=== PATIENT | male | born 1935 | race Caucasian/White ===

== ENCOUNTER → 2016-09-21 | Day surgery (SDC) | payer MEDICARE, BC ==
--- NOTE | 2016-09-14 20:50 | HP ---
ADMITTING HISTORY AND PHYSICAL: DATE OF ADMISSION: 09/21/16 - SDS AGE: 81 years, male. SURGEON: Rashid Wharton MD ADMITTING DIAGNOSES: 1. Gross hematuria. 2. Possible bladder lesion. PLANNED PROCEDURES: 1. Cystoscopy. 2. Excision biopsy of bladder lesion. 3. Possible bilateral retrogrades. ADMITTING HISTORY OF PRESENT ILLNESS: Endy Acuna is an 81-year-old gentleman who had been scheduled for excision biopsy of a bladder lesion on . Surgery was cancelled because soon after receiving propofol and fentanyl in the operating room, he was noted to be in atrial fibrillation with a rapid ventricular rate. So, the surgery was never started. He was admitted and was started on diltiazem and Xarelto and subsequently converted to sinus rhythm. He is now being brought in for the previously scheduled surgery for excision of the bladder lesion and possible bilateral retrogrades. PAST MEDICAL HISTORY: Significant for: 1. Hypertension. 2. Coronary artery disease. 3. Aortic aneurysm. 4. Atrial fibrillation. MEDICATIONS: 1. Atorvastatin 40 mg a day. 2. Cardizem 120 mg daily. 3. Carvedilol 6.25 mg daily. 4. Singulair 10 mg daily. 5. Mouna 180 mg daily. 6. Flomax 0.4 mg daily. 7. Xarelto, which is temporarily stopped. ALLERGIES: No known drug allergies. SMOKING HISTORY: He is a nonsmoker. PHYSICAL EXAMINATION GENERAL: Reveals a pleasant healthy-appearing elderly gentleman. VITAL SIGNS: Blood pressure is 130/80; pulse 52 per minute, regular; oxygen saturation 97% on room air. CARDIOVASCULAR EXAM: Regular rate and rhythm. S1, S2. LUNGS: Clear bilaterally. IMPRESSION AND PLAN: An 81-year-old gentleman with recurrent episodes of hematuria and urine cytology, which was positive and suspicious for squamous cell carcinoma, who is now being brought in for cystoscopy and excision of bladder lesion and possible bilateral retrogrades. CC: Dr. Zuñiga; Dr. Mahan; Rashid Wharton MD * [id number]/[facility] #: [id number] [facility]
[~2016-09-21] MED LIST: Acetaminophen TAB* 325 MG PO PRN; Buffered Lidocaine 1% SYR 3ML* 3 ML/SYR SYRINGE INTRADERM ONE; Buffered Lidocaine 1% SYR 3ML* 3 ML/SYR SYRINGE ONE; Dexamethasone IV* 4 MG/ML 1 ML (4 MG) ONE; DiMENhydriNATE IV* 50 MG/ML VIAL IV PUSH PRN; EPHEDrine (Pressors)* 50 MG/ML VIAL ONE; Famotidine IV* 10 MG/ML 2 ML (20 mg) IV ONE; Famotidine IV* 10 MG/ML 2 ML (20 mg) ONE; Gentamicin ADULT (*) 160 MG in NS 0.9% 100 ML* 100 ML IVPB ONE; HYDROmorphone INJ* 1 MG/ML CARPUJECT SYRINGE IV PRN; Iohexol 180 (CONTRAST) 10 ML SDV IV ONE; Lidocaine 2% MPF* 2 ML VIAL ONE; Midazolam* 1 MG/ML 5 ML VIAL (5 MG) ONE; Ondansetron INJ* 2 MG/ML VIAL ONE; Propofol* 10 MG/ML 20 ML BTL IV PUSH ONE; cefTRIAXone(*) 2 GM ADDV.VIAL IVPB ONE; fentaNYL* 50 MCG/ML 2 ML VIAL (100 MCG VIAL) ONE; oxyCODONE/Acetamin 5/325 MG* TAB PO PRN
[2016-09-21 15:15] VITALS: BP 125/70
--- NOTE | 2016-09-22 22:53 | OP ---
DATE OF OPERATION: 09/21/16 - SDS DATE OF : [birth year] - AGE: 81 years, male. SURGEON: Rashid Wharton MD. ANESTHESIOLOGIST: Dr. Carmona. ANESTHESIA: General. PRE-OP DIAGNOSES: 1. Urethral bleeding. 2. Positive urine cytology. 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 OPERATIVE PROCEDURE: Cystoscopy, excision biopsy of urethral tumor. COMPLICATIONS: None. BLOOD LOSS: Minimal. 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 POSTOPERATIVE CONDITION: Stable. INDICATIONS: Endy Acuna is an 81-year-old gentleman who has had recurrent episodes of urethral bleeding. 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 DESCRIPTION OF PROCEDURE: After induction of general anesthesia, the patient was placed in dorsal lithotomy position. Sequential compression devices were in place and functioning. On initial cystoscopy, I did not see the above described lesion and the part of the urethra that I visualized appeared normal with just some congestive changes noted in the bulbar urethra. The prostate is moderately large. The bladder is trabeculated with multiple small diverticula noted. In the bladder, I saw a small papillary lesion, which was floating within the bladder contents and it looked like it had been detached from some portion possibly of the urethra. Because of this finding, I carefully examined the entire distal urethra and in the distal most part of the urethra just proximal to the meatus, I saw a fairly sizable 3-4 cm appearing, papillary superficial appearing lesion. The cystoscopic appearance was consistent with a urothelial superficial malignancy and using the biopsy forceps, I attempted to completely excise this. Next, the Bugbee electrocautery was introduced and the area was carefully fulgurated. At the end of the procedure, I could not visualize any remaining lesion in this area and hemostasis appeared satisfactory. A 24-Czech Faria was introduced and connected to a drainage bag without difficulty. The patient tolerated the procedure satisfactorily and was transferred back to the recovery area in stable condition. CC: Mj Mahan MD; Rashid Wharton MD* [id number]/[facility] #: [id number] [facility]
== END | disposition home or self-care (01) ==
LOC: OR 09:13
PROVIDERS: ATTEND Urology
DX: C68.0 Malignant neoplasm of urethra (principal); R31.0 Gross hematuria; I10 Essential (primary) hypertension; I25.10 Atherosclerotic heart disease of native coronary artery without angina pectoris; I48.91 Unspecified atrial fibrillation; Z79.01 Long term (current) use of anticoagulants; I71.9 Aortic aneurysm of unspecified site, without rupture
CPT/HCPCS: 88305; J0696; J1100; J1580; J2250; J2405; J2704; J3010

== ENCOUNTER 2018-01-17 12:26 | Observation (INO) | payer MEDICARE, BC ==
[2018-01-17] MEDS ORDERED: NS 0.9% 1000 ML* 1,000 ML IV SCH (13:15)
[2018-01-17 13:18] LABS: ABS Basophils 0.1 10^3/ul (0-0.2); ABS Eosinophils 0.2 10^3/ul (0-0.6); ABS Monocytes 0.3 10^3/ul (0-0.8); ABS Nucleated RBC 0 10^3/ul; Eosinophil % 5.1 % (0-6); Hematocrit 30 % (42-52); Hemoglobin 10.2 g/dl (14.0-18.0); Lymphocyte % 21.8 % (25-47); Mean Corpuscular HGB Conc 34 g/dl (31-36); Mean Corpuscular Hemoglobin 30 pg (27-31); Mean Corpuscular Volume 88 fL (80-94); Mean Platelet Volume 7.2 um3 (7.4-10.4); Nucleated Red Blood Cells % 0.1; Platelet Count 204 10^3/ul (150-450); Red Cell Distribution Width 16 % (10.5-15); White Blood Count 4.6 10^3/ul (3.5-10.8)
[2018-01-17] MEDS ORDERED: Aspirin 81 mg CHEW TAB* 81 MG TAB.CHEW PO ONE (13:23)
--- NOTE | 2018-01-17 13:27 | RAD ---
INDICATION: Chest pain. COMPARISON: Comparison is made with a prior study from February 27, 2011. TECHNIQUE: A portable view of the chest was obtained. FINDINGS: Cardiac and mediastinal contours appear to be within normal limits. The lungs are clear. No pleural effusion is seen. IMPRESSION: NO EVIDENCE FOR ACUTE DISEASE.
[2018-01-17 13:29] LABS: INR 2.15 (0.77-1.02)
[2018-01-17 15:07] LABS: Urine Appearance Clear; Urine Blood 1+ (Negative); Urine Color Yellow; Urine Ketones Negative (Negative); Urine Protein Negative (Negative); Urine Urobilinogen Negative (Negative)
[2018-01-17] MEDS ORDERED: Gabapentin CAP(*) 100 MG PO SCH (17:00)
--- NOTE | 2018-01-17 17:54 | ED ---
Andrei Vincent Jennifer, scribed for Bimal Pichardo MD on 01/17/18 at 1347 . HPI Chest Pain - HPI Summary HPI Summary: The patient is an 82 y/o M who presents with chest tightness that began at 11: 00 today. The patient rates it an 8/10 pain located mid-sternum. The patient denies the pain radiates anywhere. He additionally complains of shortness of breath, dizziness, and his states he was pale. The patient states the pain is now barely there in the ED. - History of Current Complaint Chief Complaint: EDChestPainROMI Time Seen by Provider: 01/17/18 13:00 Hx Obtained From: Patient Onset/Duration: Started Hours Ago - 3 hours ago, Resolved - pain is barely there in ED Timing: Constant Initial Severity: Mild Current Severity: Mild Pain Intensity: 2 Pain Scale Used: 0-10 Numeric Chest Pain Location: Mid Sternal Chest Pain Radiates: No Character: Tightness Aggravating Factor(s): Nothing Alleviating Factor(s): Nothing Associated Signs and Symptoms: Positive: Other: - shortness of breath, dizziness , pale - Additional Pertinent History Primary Care Physician: DENEEN - Allergy/Home Medications Allergies/Adverse Reactions: Allergies Allergy/AdvReac Type Severity Reaction Status Date / Time No Known Allergies Allergy Verified 09/21/16 09:40 Home Medications: Home Medications Aspirin EC TAB* [Ecotrin EC Low Dose 81 MG*] 81 mg PO DAILY 01/17/18 [History Confirmed 01/17/18] Fluticasone DISKUS 250 MCG(NF) [Flovent Diskus 250 MCG(NF)] 1 puff INH BID 01/17 [History Confirmed 01/17/18] PMH/Surg Hx/FS Hx/Imm Hx Endocrine/Hematology History: Denies: Hx Anticoagulant Therapy, Hx Blood Disorders, Hx Blood Transfusions, Hx Bone Marrow Disease, Hx Diabetes, Hx Systemic Lupus Erythematosus, Hx Sickle Cell Disease, Hx Thyroid Disease, Hx Anemia, Hx Unexplained Bleeding, Other Endocrine/Hematological Disorders Cardiovascular History: Reports: Hx Coronary Artery Disease - aortic aneurysm, Hx Hypercholesterolemia, Hx Hypertension - on meds well controlled, Hx Myocardial Infarction, Other Cardiovascular Problems/Disorders - CHOLESTEROL CONTROL WITH MEDS, new diagnosis of a-fib Denies: Hx Aneurysm, Hx Angina, Hx Angioplasty, Hx Auto Implanted Cardiovert Defib, Hx Cardiac Arrest, Hx Cardiomegaly, Hx Congenital Heart Disease, Hx Congestive Heart Failure, Hx Deep Vein Thrombosis, Hx Hypotension, Hx Pacemaker/ ICD, Hx Peripheral Vascular Disease, Hx Rheumatic Fever, Hx Syncope, Hx Valvular Heart Disease Respiratory History: Reports: Hx Asthma - PRN INHALER History: Reports: Other Problems/Disorders - CURRENTLY HEMATURIA, bladder diverticlae Denies: Hx Acute Renal Failure, Hx Benign Prostatic Hyperplasia, Hx Chronic Renal Failure, Hx Dialysis, Hx Kidney Infection, Hx Kidney Stones, Hx Renal Disease Musculoskeletal History: Reports: Hx Back Problems - couple days ago "back went out" ok now, also 6 mons ago Denies: Hx Arthritis, Hx Bursitis, Hx Congenital Bone Abnormalities, Hx Fibromyalgia, Hx Gout, Hx Orthopedic Injury, Hx Osteoporosis, Hx Scoliosis, Hx Tendonitis, Other Musculoskeletal History Sensory History: Reports: Hx Cataracts - removed, Hx Contacts or Glasses - to read, Hx Hearing Aid - bilat, Hx Hearing Problem Denies: Hx Eye Injury, Hx Eye Prosthesis, Hx Glaucoma, Hx Macular Degeneration, Hx Vision Problem, Hx Deafness, Other Sensory Impairments Opthamlomology History: Reports: Hx Cataracts - removed, Hx Contacts or Glasses - to read Denies: Hx Eye Injury, Hx Eye Prosthesis, Hx Glaucoma, Hx Macular Degeneration, Hx Vision Problem, Other Sensory Impairments - Surgical History Surgery Procedure, Year, and Place: 1984 KNEE ARTHROSCOPIC SURGERY, [facility] [place]. 2001 LEFT ROTATOR CUFF REPAIR, [facility] [place]. 2002 RIGHT ROTATOR CUFF REPAIR, [facility] [place]. 2013 ANGIOPLASTY WITH 1 CARDIAC STENT PLACEMENT, [facility] [place]. CATARACTS 2013 Hx Anesthesia Reactions: No - Immunization History Date of Tetanus Vaccine: up to date Date of Influenza Vaccine: 2016 Infectious Disease History: No Infectious Disease History: Denies: Hx Clostridium Difficile, Hx Hepatitis, Hx Human Immunodeficiency Virus (HIV), Hx Shingles, Hx Tuberculosis, Traveled Outside the in Last 30 Days - Family History Known Family History: Negative: Renal Disease - Social History Alcohol Use: Weekly Substance Use Type: Reports: None Smoking Status (MU): Never Smoked Tobacco Have You Smoked in the Last Year: No Review of Systems Positive: Other - Pale Positive: Chest Pain - tightness Positive: Shortness Of Breath Neurological: Other - Dizziness All Other Systems Reviewed And Are Negative: Yes Physical Exam - Summary Physical Exam Summary: General: well-appearing, no pain distress Skin: warm, color reflects adequate perfusion, dry Head: normal Eyes: EOMI, ISI ENT: normal Neck: supple, nontender Respiratory: CTA, breath sounds present Cardiovascular: RRR Abdomen: soft, nontender Bowel: present Musculoskeletal: normal, strength/ROM intact Neurological: sensory/motor intact, A&O x3 Psychological: affect/mood appropriate Triage Information Reviewed: Yes Vital Signs On Initial Exam: Initial Vitals Temp Pulse Resp BP Pulse Ox 98.0 F 59 18 116/61 98 01/17/18 12:26 01/17/18 12:26 01/17/18 12:26 01/17/18 12:26 01/17/18 12:26 Vital Signs Reviewed: Yes Diagnostics - Vital Signs Vital Signs Temp Pulse Resp BP Pulse Ox 01/17/18 12:26 98.0 F 59 18 116/61 98 - Laboratory Lab Results: Lab Results 01/17/18 01/17/18 01/17/18 Range/Units 13:04 13:04 13:04 WBC 4.6 (3.5-10.8) 10^3/ul RBC 3.40 L (4.0-5.4) 10^6/ul Hgb 10.2 L (14.0-18.0) g/dl Hct 30 L (42-52) % MCV 88 (80-94) fL MCH 30 (27-31) pg MCHC 34 (31-36) g/dl RDW 16 H (10.5-15) % Plt Count 204 (150-450) 10^3/ul MPV 7.2 L (7.4-10.4) um3 Neut % (Auto) 65.0 (38-83) % Lymph % (Auto) 21.8 L (25-47) % Burke % (Auto) 6.9 (0-7) % Eos % (Auto) 5.1 (0-6) % Baso % (Auto) 1.2 (0-2) % Absolute Neuts (auto) 3.0 (1.5-7.7) 10^3/ul Absolute Lymphs (auto) 1.0 (1.0-4.8) 10^3/ul Absolute Monos (auto) 0.3 (0-0.8) 10^3/ul Absolute Eos (auto) 0.2 (0-0.6) 10^3/ul Absolute Basos (auto) 0.1 (0-0.2) 10^3/ul Absolute Nucleated RBC 0 10^3/ul Nucleated RBC % 0.1 INR (Anticoag Therapy) 2.15 H (0.77-1.02) APTT 38.9 H (26.0-36.3) seconds D-Dimer, Quantitative < 200 (Less Than 230) ng/mL Lactic Acid 1.3 (0.5-2.0) mmol/L Result Diagrams: 01/17/18 13:04 01/17/18 13:04 Lab Statement: Any lab studies that have been ordered have been reviewed, and results considered in the medical decision making process. - Radiology CXR Xray Interpretation: No Acute Changes - NO EVIDENCE FOR ACUTE DISEASE. Dr. Pichardo has reviewed this report. Radiology Interpretation Completed By: Radiologist - EKG 1230 Cardiac Rate: Bradycardia EKG Rhythm: Sinus Bradycardia - [address] Segment: Normal Ectopy: None Chest Pain Course/Dx - Course Course Of Treatment: ADMIT HOSPITALIST - Diagnoses Provider Diagnoses: Chest pain - Provider Notifications Discussed Care Of Patient With: Miki Aquino Time Discussed With Above Provider: 15:33 Instructed by Provider To: Admit As Inpatient Discharge - Sign-Out/Discharge Documenting (check all that apply): Discharge/Admit/Transfer - Discharge Plan Condition: Stable Disposition: ADMITTED TO [facility] - Billing Disposition and Condition Condition: STABLE Disposition: H[facility] [place] The documentation as recorded by the Andrei moreira Jennifer accurately reflects the service I personally performed and the decisions made by , Bimal Pichardo MD.
[2018-01-17] MEDS ORDERED: Mometasone 220 MCG MDI INH SCH (18:00)
[2018-01-17] MEDS: Metoprolol Tartrate TAB* 25 MG PO SCH ×2 (19:17→22:42)
[2018-01-17] MEDS ORDERED: Atorvastatin* 40 MG TAB PO SCH (21:00)
--- NOTE | 2018-01-17 22:56 | HP ---
HISTORY AND PHYSICAL: DATE OF ADMISSION: ADMITTING PROVIDER: Miki Aquino MD PRIMARY CARE PHYSICIAN: Dr. Lien Live. OUTPATIENT CHILD CAREGIVER: Dr. Zuñiga. OUTPATIENT UROLOGIST: Dr. Wharton. CHIEF COMPLAINT: Chest tightness, shortness of breath, dizziness. 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 On the morning of admission around 11 to 11:30 a.m. was using his weed eater in his garden when he developed sudden 8/10 chest tightness and shortness of breath. This lasted about 5 minutes, but did not completely resolve. He ate lunch, went down into the basement, came back up at which point his said he looked "terrible" and he admitted that he felt poorly and he was still short of breath and dizzy feeling. They drove themselves to the emergency room. He had taken his aspirin 81 mg, he got 3 more in the emergency room. He had an EKG, which was not concerning for STEMI and he was referred to hospitalist service for ACS rule out. He attests that the chest tightness does not necessarily feel like his myocardial infarction, but he admits that he cannot recall how that actually felt. He does notice that he seems to be getting more winded on his walks. He usually walks about 2 miles a day and for the last 2 to 3 days he has been getting more short of breath and having to stop more frequently. He denies any edema. Denies chills , fevers, or vomiting. Pain currently in his chest is about 2/10. He is a relatively poor historian and cannot attest why he is on the Xarelto and denies history of atrial fibrillation, although it is well documented in the previous notes. PAST MEDICAL HISTORY: Hypertension; STEMI with RCA stent drug-eluting; hyperlipidemia; asthma; papillary urothelial mass, status post resection with no evidence of invasive tumor; paroxysmal atrial fibrillation, on Xarelto. MEDICATIONS: 1. Flomax 0.4 mg daily. 2. Xarelto 20 mg p.o. daily. 3. Singulair 10 mg p.o. q.a.m. 4. Flovent 1 puff inhaled b.i.d. 5. Mouna 100 mg p.o. q.a.m. 6. Diltiazem 120 mg p.o. daily. 7. Carvedilol 6.25 mg p.o. q.h.s. 8. Lipitor 40 mg p.o. at bedtime. 9. Aspirin 81 mg daily. ALLERGIES: No known drug allergies. FAMILY HISTORY: His father of a heart attack at age 76. His mother had headaches. SOCIAL HISTORY: The patient is a never smoker, drinks rarely. Lives with his , Margie Acuna, who is his healthcare proxy and surrogate decision maker. He desires to be a full code. REVIEW OF SYSTEMS: A complete 14-point review of systems negative except as per HPI. He denies any rashes, dysuria, increased frequency of urination, headaches, wheezing, cough, paroxysmal nocturnal dyspnea or orthopnea, or lower extremity edema. PHYSICAL EXAMINATION GENERAL APPEARANCE: No acute distress. Lying in the hospital bed. VITAL SIGNS: Temperature 98.0, pulse rate 59, respiratory rate 18, oxygen sat 98%, blood pressure 116/61. HEENT: Normocephalic, atraumatic. Pupils are equal, round, and reactive to light. Extraocular motions intact. Moist mucous membranes. NECK: No cervical lymphadenopathy. Neck is supple. RESPIRATORY: Clear to auscultation bilaterally with no wheezing, rales, or rhonchi. CARDIOVASCULAR: Regular rate and rhythm. No murmurs, rubs, or gallops. ABDOMEN: Soft, nontender, nondistended. EXTREMITIES: Warm, well perfused. 1+ pitting edema bilaterally. NEURO: Cranial nerves II through XII intact. Sensation and strength intact. SKIN: No lesions. No rashes. DIAGNOSTIC STUDIES/LAB DATA: White count is 4.6, hemoglobin 10.2, hematocrit 30, platelets 204. INR 2.15. Sodium 139, potassium 4.0, chloride 108, carbon dioxide 23, BUN 19, creatinine 0.9, lactic acid 1.3, glucose 129, magnesium 2.1. Total bili 0.4, AST 17, ALT 11, alk phos 62. Troponin 0.00. CRP less than 1. BNP 109. Albumin 3.6. TSH 3.52. Lipase 46. Urinalysis: 1+ blood, trace leukocyte esterase. Imaging: Chest x-ray demonstrated no acute disease. ASSESSMENT AND PLAN: Endy Acuna is an 82-year-old male with past medical history of non-ST elevation myocardial infarction with RCA stent, hypertension, asthma, hyperlipidemia, presenting with acute onset chest tightness, shortness of breath and dizziness. He is being admitted for acute coronary syndrome rule out. Trend troponins q.3 hours for another two until peak. He is status post aspirin 324 mg total. He has already taken his Lipitor 40 mg this morning and I will give him another 40 tonight and continue daily. I am going to hold his Coreg 6.25 and diltiazem and start him on metoprolol 25 mg q.6 hours p.r.n. His blood pressure currently is 116/61. We will continue on telemetry. His last A1c was several years ago at 4.7%. No reported history of diabetes. His last LDL was 62 in May 2017 and HDL was 36. For his paroxysmal atrial fibrillation, we will continue his Xarelto, hold his Coreg, dilt and add metoprolol. He is not aware that he has this condition. For his benign prostatic hypertrophy, continue his Flomax. For his asthma, continue his Flovent and Singulair. He will be n.p.o. for now. Consider exercise or nuclear stress test tomorrow given there is some edema, slightly elevated BNP and exertional dyspnea. I will get a transthoracic echocardiogram. Last was from August 2017, which showed ejection fraction 55% to 60% with some diastolic dysfunction. I am going to stop the fluid bolus that was started in the emergency room. I will repeat the lipid panel in the morning. Given the several years since A1c, I will check that as well. He is full code and medical surrogate is Margie Acuna. For DVT ppx , he is already on xarelto. [id number]/[facility] #: [id number] YANAN
[2018-01-18] MEDS: Metoprolol Tartrate TAB* 25 MG PO SCH ×2 (05:41→11:56)
[2018-01-18] MEDS ORDERED: Montelukast Sodium TAB* 10 MG PO SCH (09:00)
[2018-01-18] MEDS ORDERED: Rivaroxaban TAB(*) 20 MG TAB PO SCH (09:00)
[2018-01-18] MEDS ORDERED: Aspirin EC TAB* 81 MG TAB.EC PO SCH (09:00)
[2018-01-18] MEDS ORDERED: Cetirizine* 10 MG TAB PO SCH (09:00)
[2018-01-18] MEDS ORDERED: Tamsulosin CAP* 0.4 MG PO SCH (09:00)
[2018-01-18 11:38] VITALS: BP 126/57
--- NOTE | 2018-01-18 11:44 | RAD ---
Edited for charges. INDICATION: Chest pain, history of coronary artery disease. COMPARISON: Comparison is made with a prior myocardial perfusion study from March 01, 2011. Technique: A single day myocardial perfusion stress study was performed. Initially the resting study was performed. The patient was given an intravenous injection of 10.8 mCi of technetium 99m tetrofosmin and and the heart was imaged in multiple projections. The patient returned later in the day and under the direction of Dr. Doll, the patient was given intervenous injection of Lexiscan. Subsequently the patient was given intravenous injection of 25.9 mCi of technetium 99m tetrofosmin and the heart was imaged in multiple projections. The patient was unable to be positioned for attenuated correction images limiting the study. Images were reconstructed in the axial, sagittal and coronal planes and in a 3- D format. FINDINGS: There appears to be normal wall motion and myocardial thickening. The left ventricular ejection fraction was calculated to be 62%. Review of the images demonstrates mild decreased activity in the inferior wall which appears similar on the post pharmacologic stress and resting images suggestive of attenuation artifact or infarct. There is no evidence for ischemia. IMPRESSION: NO EVIDENCE FOR ISCHEMIA. THERE IS DECREASED ACTIVITY IN THE INFERIOR WALL SUGGESTIVE OF ATTENUATION ARTIFACT OR AN INFARCT. ASSESSMENT: Low risk. Based on imaging criteria from ACC/AHA 2002 Guideline Update for the Management of Patients With Chronic Stable Angina Table 23. Noninvasive Risk Stratification. MTDD
[2018-01-18] MEDS ORDERED: Regadenoson* 0.4 MG/5 ML SYRINGE ONE (11:47)
--- NOTE | 2018-01-18 16:47 | ECHO ---
Patient: LÓPEZ LOVE [facility] Rec#: [id number] : 1935 Date: 01/18/2018 Age: 82y Height: 170.2 cm / 67.0 in Weight: 90.7 kg / 199.9 lbs Sex: M BSA: 2 Room#: [id number] Type: Inpatient Referring: Miki Aquino Reading: Jayson Meade MD [employer]orer [employer] Dock: Melissa Wilkerson RN RDCS CC: RAUL DE LA TORRE CC: Valencia Zuñiga MD Transthoracic Echocardiogram Indication: Chest pain, ARMANDO BP: 103/43 HR: 52 Rhythm: Bradycardia Findings History: PAF, CAD with PCI to RCA, HTN, HLD, asthma, BPH Technical Comments: The study quality is fair. Completed at 1525. Left Ventricle: The left ventricular chamber size is normal. Global left ventricular wall motion and contractility are within normal limits. There is normal left ventricular systolic function. The estimated ejection fraction is 55-60%. Abnormal left ventricular diastolic filling is observed, consistent with impaired relaxation. Left Atrium: The left atrium is mildly dilated. Right Ventricle: The right ventricular chamber size and systolic function are within normal limits. Right Atrium: The right atrium is mildly dilated. Aortic Valve: The aortic valve is trileaflet. The aortic valve leaflets are mildly thickened. There is trace to mild aortic regurgitation. There is no evidence of aortic stenosis. Mitral Valve: The mitral valve leaflets are mildly thickened. There is mild to moderate mitral regurgitation. Tricuspid Valve: The tricuspid valve leaflets are normal. There is trace to mild tricuspid regurgitation. No pulmonary hypertension is noted. Pulmonic Valve: The pulmonic valve appears normal. There is trace to mild pulmonic regurgitation. There is no pulmonic stenosis. Pericardium: There is no significant pericardial effusion. A pericardial fat pad is visualized. Aorta: There is mild dilatation of the ascending aorta. There is no dilatation of the aortic arch. There is moderate dilatation of the aortic root. Pulmonary Artery: The main pulmonary artery is not well visualized. Venous: The inferior vena cava is not visualized. Conclusions There is normal left ventricular systolic function. The estimated ejection fraction is 55-60%. Global left ventricular wall motion and contractility are within normal limits. The left ventricular chamber size is normal. Abnormal left ventricular diastolic filling is observed, consistent with impaired relaxation. The left atrium is mildly dilated. The right atrium is mildly dilated. There is mild to moderate mitral regurgitation. There is moderate dilatation of the aortic root. There is mild dilatation of the ascending aorta. Since the prior transesophageal echocardiogram completed 08/18/16, findings appear similiar. Measurements Name Value Normal Range RAd ISD 4CH 5.4 cm (3.4 - 4.9) RA (A4C)W 4.5 cm (2.9 - 4.6) IVSd (2D) 1.1 cm (0.6 - 1) LVPWd (2D) 1.2 cm (0.6 - 1) LVIDd (2D) 4.8 cm (3.6 - 5.4) LVIDs (2D) 3.1 cm - LV FS (2D) 35 % (25 - 45) Aortic Annulus 2.2 cm (1.4 - 2.6) Ao root diameter (2D) 4.1 cm (2.1 - 3.5) Ascending Ao 3.6 cm (2.1 - 3.4) Aortic arch 2.6 cm (1.8 - 3.4) LA dimension (AP) 2D 3.7 cm (2.3 - 3.8) LAd ISD 4CH 5.6 cm (2.9 - 5.3) LA ISD 4CH W 4.3 cm (2.5 - 4.5) Name Value Normal Range LA ESV SP 4CH (A/L) 54 ml - LA ESV SP 2CH (A/L) 52 ml - LA ESV BP (A/L) 55 ml - LA ESV BP (A/L) index 27.4 ml/m2 - LA ESV SP 4CH (MOD) 52 ml - LA ESV SP 2CH (MOD) 49 ml - Name Value Normal Range MV E-wave Vmax 0.76 m/sec - MV deceleration time 190 msec - MV A-wave Vmax 0.81 m/sec - MV E:A ratio 0.95 ratio - LV septal e' Vmax 0.04 m/sec - LV lateral e' Vmax 0.1 m/sec - LV E:e' septal ratio 19 ratio - LV E:e' lateral ratio 7.6 ratio - Name Value Normal Range AV Vmax 1.6 m/sec - AV VTI 41.8 cm - AV peak gradient 10.4 mmHg - AV mean gradient 5.8 mmHg - LVOT Vmax 1.1 m/sec - LVOT VTI 24 cm - LVOT peak gradient 4.6 mmHg - LVOT mean gradient 2.2 mmHg - JOSTIN Vmax 0.69 m/sec - Name Value Normal Range TR Vmax 2.5 m/sec - TR peak gradient 25 mmHg - RAP 8 mmHg - RVSP 33 mmHg - Name Value Normal Range PV Vmax 0.59 m/sec -
--- NOTE | 2018-01-19 02:44 | DS ---
DISCHARGE SUMMARY: DATE OF ADMISSION: 01/17/18 DATE OF DISCHARGE: 01/18/18 ADMITTING AND ATTENDING PHYSICIAN: Miki Aquino MD PRIMARY CARE PHYSICIAN: Line Live MD OUTPATIENT SECURITY MESSENGER: Valencia Zuñiga MD OUTPATIENT UROLOGIST: Rashid Wharton MD CHIEF COMPLAINT: Chest tightness, shortness of breath, dizziness. PRINCIPAL DIAGNOSIS: Acute coronary syndrome rule out. 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 On the morning of admission , he was using his weed eater in the garden when he developed chest tightness and shortness of breath. It lasted 5 minutes, but did not completely resolve. Please see H&P for full details. His brought him to the emergency room where he continued to feel short of breath and dizzy. He got total of 324 mg of aspirin. He had an EKG, which demonstrated sinus bradycardia, T-wave inversions in lead III. No ST elevations or depressions. He was admitted for ACS rule out, had negative troponins x3 and the nuclear stress test on hospital day #2, which was a low risk study. There was a possible area of decreased activity in the inferior wall suggestive of attenuation artifact. No evidence of ischemia, ejection fraction of 62%. He had transthoracic echocardiogram, results of that are still pending. He did attest to some decreased exercise tolerance. He usually walks about 2 miles a day, over the last 2 to 3 days feeling more short of breath, having to stop more frequently. He was continued on his Xarelto for his history of paroxysmal atrial fibrillation. There were no other changes to his medication. He had LDL recheck at 53, HDL of 31, A1c is pending, although was low several years ago, 4.7 in 2012. He should follow up with Dr. Lien Live or her nurse practitioner within 5 days of discharge. DISCHARGE MEDICATIONS: Include: 1. Aspirin 81 mg daily. 2. Atorvastatin 40 mg p.o. q.h.s. 3. Mouna 100 mg p.o. q.a.m. 4. Flovent Diskus 1 puff inhaled b.i.d. 5. Singulair 10 mg p.o. q.a.m. 6. Xarelto 20 mg p.o. daily. 7. Tamsulosin 0.4 mg p.o. q.a.m. 8. Carvedilol 6.25 mg p.o. q.h.s. 9. Diltiazem 120 mg p.o. daily. DISCHARGE DIET: Heart-healthy. ACTIVITY LEVEL: No restrictions. FOLLOWUP: Please follow up with Dr. iLen Live within 5 days of discharge. Consideration to follow up with Dr. Zuñiga, his outpatient canal lock tender chief operator. His echocardiogram results should be followed up. (ADDENDUM: EF 55-60%, diastolic dysfunction, mild-moderate MVR, moderate aortic root dilatation.) TIME SPENT ON DISCHARGE: 35 minutes. [id number]/[facility] #: [id number] MTDD
== END 2018-01-18 14:50 | disposition home or self-care (01) ==
LOC: ED 12:26 → MEDTELE 15:38
PROVIDERS: ADMIT Internal Medicine; ATTEND Internal Medicine
DX: R07.89 Other chest pain (principal); I48.0 Paroxysmal atrial fibrillation; Z79.01 Long term (current) use of anticoagulants; R06.02 Shortness of breath; R42 Dizziness and giddiness; I25.10 Atherosclerotic heart disease of native coronary artery without angina pectoris; Z86.79 Personal history of other diseases of the circulatory system; I25.2 Old myocardial infarction; E78.5 Hyperlipidemia, unspecified; I10 Essential (primary) hypertension
CPT/HCPCS: 36415; 71045; 78452; 80053; 80061; 81003; 81015; 82550; 82553; 83036; 83605; 83690; 83735; 83880; 84443; 84484; 85025; 85379; 85610; 85730; 86140; 87086; 93005; 93017; 93306; 94640; 99282; A9270-GY; A9502; G0378; J2785

== ENCOUNTER 2018-08-30 07:30 | Observation (INO) | payer MEDICARE, BC ==
[~2018-08-30 07:30] MED LIST changes: -Acetaminophen TAB* 325 MG PO PRN; +Buffered Lidocaine 0.9% SYRIN* 5 ML/SYR SYRINGE INTRADERM ONE; -Buffered Lidocaine 1% SYR 3ML* 3 ML/SYR SYRINGE INTRADERM ONE; -Buffered Lidocaine 1% SYR 3ML* 3 ML/SYR SYRINGE ONE; -Dexamethasone IV* 4 MG/ML 1 ML (4 MG) ONE; +Dexamethasone TAB* 4 MG PO ONE; -EPHEDrine (Pressors)* 50 MG/ML VIAL ONE; -Famotidine IV* 10 MG/ML 2 ML (20 mg) ONE; -Gentamicin ADULT (*) 160 MG in NS 0.9% 100 ML* 100 ML IVPB ONE; -HYDROmorphone INJ* 1 MG/ML CARPUJECT SYRINGE IV PRN; -Iohexol 180 (CONTRAST) 10 ML SDV IV ONE; +Lactated Ringers 1000 ML Bag* 1,000 ML IV SCH; -Lidocaine 2% MPF* 2 ML VIAL ONE; -Midazolam* 1 MG/ML 5 ML VIAL (5 MG) ONE; +Morphine VIAL* 4 MG/ML VIAL (1 ml vial) IV PRN; +Naloxone* 0.4 MG/ML 1 ML VIAL IV PRN; -Ondansetron INJ* 2 MG/ML VIAL ONE; +Ondansetron TAB* 4 MG PO ONE; +PROCHLORPERAZINE INJ 5 MG/ML 2 ML VIAL IV PRN; -Propofol* 10 MG/ML 20 ML BTL IV PUSH ONE; -cefTRIAXone(*) 2 GM ADDV.VIAL IVPB ONE; +fentaNYL* 50 MCG/ML 2 ML VIAL (100 MCG VIAL) IV PRN; -fentaNYL* 50 MCG/ML 2 ML VIAL (100 MCG VIAL) ONE
[2018-08-30] MEDS ORDERED: Famotidine IV* 10 MG/ML 2 ML (20 mg) ONE (08:12)
[2018-08-30] MEDS ORDERED: Dexamethasone TAB* 4 MG ONE (08:13)
[2018-08-30] MEDS ORDERED: Ondansetron ODT TAB* 4 MG ONE (08:13)
[2018-08-30] MEDS ORDERED: ceFAZolin 2 GM PREMIX in ORs 2 GM/50 ML BAG IVPB ONE (08:13)
[2018-08-30] MEDS ORDERED: Midazolam* 1 MG/ML 2 ML VIAL (2 MG) ONE (08:29)
[2018-08-30] MEDS ORDERED: fentaNYL* 50 MCG/ML 2 ML VIAL (100 MCG VIAL) ONE (08:29)
[2018-08-30] MEDS ORDERED: Atracurium* 10 MG/ML 10 ML VIAL ONE (08:29)
[2018-08-30] MEDS ORDERED: KETAMINE HCL* 50 MG/ML 10 ML VIAL ONE (08:29)
[2018-08-30] MEDS ORDERED: Thrombin 5,000 UNITS(BOVINE)* for Ultrasound Guided Pseudoaneursym ONE (09:45)
[2018-08-30] MEDS ORDERED: Lidocain 1% EPI 1:100,000 * 30 ML MDV ONE (09:45)
[2018-08-30] MEDS ORDERED: Bacitracin IV* 50,000 UNITS INJ ONE (09:45)
[2018-08-30] MEDS ORDERED: Propofol* 10 MG/ML 20 ML BTL ONE (10:42)
[2018-08-30] MEDS ORDERED: Metoprolol Tartrate IV* 1 MG/ML 5 ML VIAL ONE (10:42)
[2018-08-30] MEDS ORDERED: Norepinephrine VIAL* 1 MG/ML 4 ML VIAL ONE (10:42)
[2018-08-30] MEDS ORDERED: Glycopyrrolate IV* 0.2 MG/ML 1 ML VIAL ONE (10:42)
[2018-08-30] MEDS ORDERED: Phenylephrine INJ* 10 MG/ML 1 ML VIAL (10 MG) ONE (10:42)
[2018-08-30] MEDS ORDERED: Lidocaine 2% PF * 5 ML VIAL ONE (10:42)
[2018-08-30] MEDS ORDERED: Ondansetron INJ* 2 MG/ML VIAL IV PRN (11:33)
[2018-08-30] MEDS ORDERED: Magnesium Hydroxide LIQ* 30 ML UDC PO PRN (11:33)
[2018-08-30] MEDS ORDERED: Albuterol HFA INHALER* 8 gm MDI INH PRN (11:36)
[2018-08-30] MEDS ORDERED: Lactated Ringers 1000 ML Bag* 1,000 ML IV SCH (12:00)
[2018-08-30] MEDS: HYDROcodone/ACETAMIN 5-325 MG* 1 TAB PO PRN ×2 (14:35→20:45)
[2018-08-30] MEDS ORDERED: Carvedilol TAB* 6.25 MG PO SCH (21:00)
[2018-08-30] MEDS ORDERED: Atorvastatin* 40 MG TAB PO SCH (21:00)
[2018-08-31 07:58] VITALS: BP 104/69
[2018-08-31] MEDS ORDERED: Montelukast Sodium TAB* 10 MG PO SCH (09:00)
[2018-08-31] MEDS ORDERED: Diltiazem CD CAP* 120 MG PO SCH (09:00)
[2018-08-31] MEDS ORDERED: Tamsulosin CAP* 0.4 MG PO SCH (09:00)
--- NOTE | 2018-08-31 10:38 | PN ---
Progress Note - Progress Note Date of Service: 08/31/18 SOAP: Subjective: []POD # 1 Doing well Has ambulated voided without difficulty Pre op leg pain relieved Objective: []Dressing dry Neuro intact Assessment: []Satis post op course Plan: [] D/C today D/C Instructions given
--- NOTE | 2018-09-04 06:49 | OP ---
DATE OF OPERATION: 08/30/18 - ROOM #339 DATE OF : 37 PRIMARY SURGEON: Trae Moore MD ANESTHESIA: General. PRE-OP DIAGNOSES: 1. Lumbar spinal stenosis at L3-4. 2. 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 POST-OP DIAGNOSES: 1. Lumbar spinal stenosis at L3-4. 2. 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 OPERATIVE PROCEDURE: Lumbar decompressive laminectomy L3-4 with excision of synovial cyst L3-4 on the left with microdissection. DESCRIPTION OF PROCEDURE: After satisfactory general anesthesia was obtained, the patient was placed on the operating table in the prone position with the chest supported on Meet frame with the back slightly flexed. The lumbar region was then clipped, prepped, and draped in a sterile manner for lumbar laminectomy and a skin incision outlined from L3-4. This incision was infiltrated with 1% Xylocaine with epinephrine, after which it was turned down sharply to the level of the lumbar fascia. The fascia was divided along the spinous processes of L3 and L4 and the paraspinal musculature was stripped away from these posterior elements using the periosteal elevator and monopolar cautery. An intraoperative x-ray was obtained verifying proper interspace localization, after which a partial hemilaminectomy was initially carried out on the left side by removing the inferior aspect of the L3 lamina and medial aspect of the facet complex with a combination of the Midas Tonio drill and Kerrison rongeurs. A portion of the left side of the spinous process was also drilled out for better visualization. Projecting into the epidural space was a significant hemorrhagic synovial cyst. At this point of the procedure, the operating microscope was brought into the field and the remainder of the procedure was done under microscopic visualization. Normal dura was actually first developed by removing the most superior aspect of the L4 lamina. This enabled normal dura to be found. After normal dura was seen, dissection was carried out between the dura and synovial cyst tissue with specimens of the synovial cyst being taken for pathology. The cyst wall was tightly adherent to the dura in multiple areas and this was carefully dissected free. This was seemed to be coming out from the facet complex on the left side. After removing the cyst in its entirety, the dura was noted to be pulsatile with no further compression. The right side at this level was not disturbed as the patient did not have any preoperative right leg symptomatology. After assuring to have adequate hemostasis, the wound was thoroughly irrigated, after which a drain was placed in the epidural space and tunneled out toward the left side. The fascia was then reapproximated with 0 Vicryl suture. The subcutaneous tissue was closed with 2-0 and 3-0 Vicryl suture and the skin closed with skin clips. The estimated blood loss was less than 50 cc and final sponge, padding, and needle counts were correct. The patient was taken to the recovery room, extubated, and in stable condition. [id number]/[facility] #: [id number] [facility]esta
== END 2018-08-31 09:25 | disposition home or self-care (01) ==
LOC: OR 07:30 → SSU 11:33
PROVIDERS: ADMIT Neurological Surgery; ATTEND Neurological Surgery
DX: M71.38 Other bursal cyst, other site (principal); M48.061 Spinal stenosis, lumbar region without neurogenic claudication; I25.118 Atherosclerotic heart disease of native coronary artery with other forms of angina pectoris; I25.2 Old myocardial infarction; I71.9 Aortic aneurysm of unspecified site, without rupture; I34.0 Nonrheumatic mitral (valve) insufficiency; R00.1 Bradycardia, unspecified; J45.909 Unspecified asthma, uncomplicated; I10 Essential (primary) hypertension; E78.5 Hyperlipidemia, unspecified; E66.9 Obesity, unspecified; N40.0 Benign prostatic hyperplasia without lower urinary tract symptoms; Z79.01 Long term (current) use of anticoagulants
CPT/HCPCS: 72100; 88304; 96374; 96375; A9270-GY; G0378; J0690; J2250; J2704; J3010; J3490; J8540

== ENCOUNTER → 2019-04-04 07:48 | Emergency (ER) | payer MEDICARE, BC ==
[~2019-04-04 07:48] MED LIST changes: -Buffered Lidocaine 0.9% SYRIN* 5 ML/SYR SYRINGE INTRADERM ONE; -Dexamethasone TAB* 4 MG PO ONE; -DiMENhydriNATE IV* 50 MG/ML VIAL IV PUSH PRN; +Digoxin IV* 0.5 MG/2 ML AMP (0.25 MG/ML) IV SLOW PU ONE; -Famotidine IV* 10 MG/ML 2 ML (20 mg) IV ONE; -Lactated Ringers 1000 ML Bag* 1,000 ML IV SCH; -Morphine VIAL* 4 MG/ML VIAL (1 ml vial) IV PRN; +NS 0.9% 1000 ML** 1,000 ML IV ONE; -Naloxone* 0.4 MG/ML 1 ML VIAL IV PRN; -Ondansetron TAB* 4 MG PO ONE; -PROCHLORPERAZINE INJ 5 MG/ML 2 ML VIAL IV PRN; -fentaNYL* 50 MCG/ML 2 ML VIAL (100 MCG VIAL) IV PRN; -oxyCODONE/Acetamin 5/325 MG* TAB PO PRN
--- NOTE | 2019-04-04 08:14 | ED ---
Syncope/Near Syncope - HPI Summary HPI Summary: Pt. is a 84 y.o male who presents to the ER via EMS for hypotension and near syncope. Pt. states he was not feeling well when he woke up. He took the recycling to the curb and then started feeling light headed and dizzy. He sat down and took his BP and it was 50's/e. Pt. notes he felt SOB at that time. He denies headache, CP, abd. pain, V/D, urinary sxs, numbness, tingling or unilateral weakness. Pt. states since in the ER he feels back to his baseline without complaints. Past medical hx of afib (on xarelto), emphysema, and hyperlipidemia. Sxs are moderate in severity. No current modifying factors. - History Of Current Complaint Chief Complaint: EDDizziness Time Seen by Provider: 04/04/19 08:05 Hx Obtained From: Patient, Family/Business Planning Manager - Allergies/Home Medications Allergies/Adverse Reactions: Allergies Allergy/AdvReac Type Severity Reaction Status Date / Time No Known Allergies Allergy Verified 04/04/19 08:07 PMH/Surg Hx/FS Hx/Imm Hx Previously Healthy: Yes Endocrine/Hematology History: Denies: Hx Anticoagulant Therapy, Hx Blood Disorders, Hx Blood Transfusions, Hx Bone Marrow Disease, Hx Diabetes, Hx Systemic Lupus Erythematosus, Hx Sickle Cell Disease, Hx Thyroid Disease, Hx Anemia, Hx Unexplained Bleeding, Other Endocrine/Hematological Disorders Cardiovascular History: Reports: Hx Angina, Hx Coronary Artery Disease, Hx Hypercholesterolemia, Hx Hypertension - on meds well controlled, Other Cardiovascular Problems/Disorders - CHOLESTEROL CONTROL WITH MEDS, new diagnosis of a-fib Denies: Hx Aneurysm, Hx Angioplasty, Hx Auto Implanted Cardiovert Defib, Hx Cardiac Arrest, Hx Cardiomegaly, Hx Congenital Heart Disease, Hx Congestive Heart Failure, Hx Deep Vein Thrombosis, Hx Hypotension, Hx Myocardial Infarction , Hx Pacemaker/ICD, Hx Peripheral Vascular Disease, Hx Rheumatic Fever, Hx Syncope, Hx Valvular Heart Disease Respiratory History: Reports: Hx Asthma - PRN INHALER History: Reports: Other Problems/Disorders - CURRENTLY HEMATURIA, bladder diverticlae Denies: Hx Acute Renal Failure, Hx Benign Prostatic Hyperplasia, Hx Chronic Renal Failure, Hx Dialysis, Hx Kidney Infection, Hx Kidney Stones, Hx Renal Disease Musculoskeletal History: Reports: Hx Back Problems Denies: Hx Arthritis, Hx Bursitis, Hx Congenital Bone Abnormalities, Hx Fibromyalgia, Hx Gout, Hx Orthopedic Injury, Hx Osteoporosis, Hx Scoliosis, Hx Tendonitis, Other Musculoskeletal History Sensory History: Reports: Hx Cataracts - removed, Hx Contacts or Glasses - Reading glasses, Hx Hearing Aid, Hx Hearing Problem Denies: Hx Eye Injury, Hx Eye Prosthesis, Hx Glaucoma, Hx Macular Degeneration, Hx Vision Problem, Hx Deafness, Other Sensory Impairments Opthamlomology History: Reports: Hx Cataracts - removed, Hx Contacts or Glasses - Reading glasses Denies: Hx Eye Injury, Hx Eye Prosthesis, Hx Glaucoma, Hx Macular Degeneration, Hx Vision Problem, Other Sensory Impairments Psychiatric History: Denies: Hx Panic Disorder - Cancer History Hx Chemotherapy: No - Surgical History Surgery Procedure, Year, and Place: 1984 [place] [facility] [place] [facility] [place] [facility] [place] WITH 1 CARDIAC STENT PLACEMENT[place] [facility] [place] 2013 Hx Anesthesia Reactions: No - Immunization History Date of Tetanus Vaccine: up to date Date of Influenza Vaccine: 2016 Infectious Disease History: No Infectious Disease History: Denies: Hx Clostridium Difficile, Hx Hepatitis, Hx Human Immunodeficiency Virus (HIV), Hx Shingles, Hx Tuberculosis, Traveled Outside the in Last 30 Days - Family History Known Family History: Positive: Unknown, Non-Contributory Negative: Renal Disease - Social History Occupation: Retired Lives: With Family Alcohol Use: Weekly Alcohol Amount: 1-2 Substance Use Type: Reports: None Smoking Status (MU): Never Smoked Tobacco Have You Smoked in the Last Year: No Review of Systems Constitutional: Negative Negative: Fever, Chills Cardiovascular: Negative Negative: Palpitations, Chest Pain Positive: Shortness Of Breath. Negative: Cough Gastrointestinal: Negative Negative: Abdominal Pain, Vomiting, Diarrhea Genitourinary: Negative Negative: dysuria Musculoskeletal: Negative Skin: Negative Neurological: Negative Negative: Headache, Weakness, Paresthesia, Numbness, Syncope, Slurred Speech All Other Systems Reviewed And Are Negative: Yes Physical Exam Triage Information Reviewed: Yes Vital Signs On Initial Exam: Initial Vitals Temp Pulse Resp BP Pulse Ox 97.1 F 105 20 125/89 98 04/04/19 07:55 04/04/19 07:55 04/04/19 07:55 04/04/19 07:55 04/04/19 07:55 Vital Signs Reviewed: Yes Appearance: Positive: Well-Appearing - Pt. sitting up in bed in NAD. Pleasant and smiling. Answers questions appropriately. present. Skin: Positive: Warm, Dry, Other - Large annular area of erythema noted to the upper posterior left leg. No induration or fluctuance. Head/Face: Positive: Normal Head/Face Inspection Eyes: Positive: Normal, EOMI Neck: Positive: Supple Respiratory/Lung Sounds: Positive: Clear to Auscultation, Breath Sounds Present Cardiovascular: Positive: IRR Abdomen Description: Positive: Nontender, Soft Musculoskeletal: Positive: Normal, Strength/ROM Intact Neurological: Positive: Normal, Alert, Oriented to Person Place, Time, CN Intact II-III, Facial Symmetry, Speech Normal Psychiatric: Positive: Affect/Mood Appropriate - Kizzy Coma Scale Best Eye Response: 4 - Spontaneous Best Motor Response: 6 - Obeys Commands Best Verbal Response: 5 - Oriented Coma Scale Total: 15 Diagnostics - Vital Signs Vital Signs Temp Pulse Resp BP Pulse Ox 04/04/19 08:04 76 22 97 04/04/19 07:57 81 16 125/89 97 04/04/19 07:55 97.1 F 105 20 125/89 98 - Laboratory Result Diagrams: 04/04/19 08:23 04/04/19 08:23 Lab Statement: Any lab studies that have been ordered have been reviewed, and results considered in the medical decision making process. Course/Dx Course Of Treatment: Pt. presenting with near syncope and hypotension. In ED pressure in 100/62. Pt. has no complaints and states he feels fine. ECG done at 0814 shows afib at a rate of 111bpm, normal axis, no STEMI. Pt. given IV fluids. Labs are unremarkable. He does have an area of questionable cellulitis to the back of his left leg. His states he is in the muro a lot. Lyme titer pending. Positive orthostatic VS and pt. has remained tachycardic in the 110-120's. Case discussed with Dr. Keene who recommened hospitalist consult. Case discussed with Dr. Leon who noted hypotension is chronic. She notes pt. is usually in a sinus bola and gave pt. a dose of IV dig to slow HR. Pt given another liter of fluids. HR improvement. Pt. ambulated and states he feels great. Pt. examined by Dr. Keene. Will dc home to [facility] with pcp in 2-3 days. To return to ER if sxs change or worsen. Pt. and understand and agree with plan. Will start on doxy for rash to leg. - Diagnoses Provider Diagnoses: Hypotension, Cellulitis Discharge - Sign-Out/Discharge Documenting (check all that apply): Patient Departure Patient Received Moderate/Deep Sedation with Procedure: No - Discharge Plan Condition: Improved Disposition: HOME Prescriptions: DOXYcycline CAP(*) [DOXYcycline 100MG CAP(*)] 100 mg PO BID #20 cap Patient Education Materials: A-fib (Atrial Fibrillation) (ED), Cellulitis (ED) , Hypotension (ED) Referrals: Lien Live MD [Primary Care Provider] - Additional Instructions: Follow up with your PCP in 2-3 days Continue medications as directed Take antibiotic as directed Return to ER if symptoms change or worsen - Billing Disposition and Condition Condition: IMPROVED Disposition: Home
[2019-04-04 08:32] LABS: ABS Eosinophils 0.2 10^3/ul (0-0.6); ABS Lymphocytes 0.9 10^3/ul (1.0-4.8); ABS Monocytes 0.5 10^3/ul (0-0.8); ABS Neutrophils 3.4 10^3/ul (1.5-7.7); Eosinophil % 3.9 %; Hematocrit 43 % (42-52); Hemoglobin 14.7 g/dL (14.0-18.0); Lymphocyte % 17.2 %; Mean Corpuscular HGB Conc 34 g/dL (31-36); Mean Corpuscular Hemoglobin 34 pg (27-31); Mean Corpuscular Volume 99 fL (80-94); Mean Platelet Volume 7.5 fL (7.4-10.4); Nucleated Red Blood Cells % 0.1; Platelet Count 177 10^3/uL (150-450); Red Blood Count 4.37 10^6 /uL (4.18-5.48); Red Cell Distribution Width 14 % (10-15)
[2019-04-04 08:53] LABS: Activated Partial Thrombo Time 44.9 seconds (26.0-38.0); INR 1.78 (0.82-1.09)
[2019-04-04 08:56] LABS: Albumin 3.9 g/dL (3.2-5.2); Albumin/Globulin Ratio 1.6 (1-3); BUN/Creatinine Ratio 21.7 (8-20); EGFR African American 107.1 (>60); EGFR Non-African American 88.5 (>60); Globulin 2.5 g/dL (2-4); Magnesium 2.1 mg/dL (1.9-2.7); Potassium 4.1 mmol/L (3.5-5.0); Total Bilirubin 0.7 mg/dL (0.2-1.0); Total Protein 6.4 g/dL (6.4-8.9); Troponin I 0.01 ng/mL (<0.04)
[2019-04-04 09:38] LABS: TSH (Thyroid Stimulating Horm) 4.57 mcIU/mL (0.34-5.60)
[2019-04-04 09:46] LABS: Urine Appearance Clear; Urine Bacteria Absent (Absent); Urine Bilirubin Negative (Negative); Urine Blood 1+ (Negative); Urine Color Straw; Urine Glucose Negative (Negative); Urine Ketones Negative (Negative); Urine Nitrite Negative (Negative); Urine Protein Negative (Negative); Urine Red Blood Cell Absent (Absent); Urine Specific Gravity 1.005 (1.010-1.030); Urine Urobilinogen Negative (Negative); Urine White Blood Cell Trace(0-5/hpf) (Absent)
[2019-04-04 10:56] LABS: C Reactive Protein 2.06 mg/L (<8.01)
[2019-04-04 14:13] VITALS: BP 97/63
[2019-04-07 09:20] LABS: B garinii/B afzelii PCR Negative (Negative); B mayonii PCR Negative (Negative)
== END | disposition home or self-care (01) ==
LOC: ED 07:48
DX: I95.9 Hypotension, unspecified (principal); L03.116 Cellulitis of left lower limb; I48.91 Unspecified atrial fibrillation; J43.9 Emphysema, unspecified; E78.5 Hyperlipidemia, unspecified; Z79.01 Long term (current) use of anticoagulants; I25.119 Atherosclerotic heart disease of native coronary artery with unspecified angina pectoris; I10 Essential (primary) hypertension; Z79.899 Other long term (current) drug therapy
CPT/HCPCS: 36415; 71045; 80053; 81003; 81015; 83605; 83735; 84443; 84484; 85025; 85610; 85730; 86140; 87086; 87476; 87798; 93005; 96361; 96374; 99285; J1160

== ENCOUNTER 2019-04-05 10:13 | Emergency (ER) | payer MEDICARE, BC ==
--- NOTE | 2019-04-05 10:40 | ED ---
Dizziness - HPI Summary HPI Summary: An 84 y/o male accompanied by presents to [facility] with a chief complaint of lightheadedness and low blood pressure since yesterday. He came to the ED yesterday for similar presentation, at which point he was in A. fib with RVR. Patient was given medications, fluids and felt better and was discharged. He said that he felt better but then this morning he had a blood pressure of 55/ 46. He denies any CP. The patient reports taking Diltiazem and Carvedilol and has not changed when he has been taking his medications. He reports that his low BP was after taking Diltiazem this morning. He denies any SOB currently and his BP at triage is 103/59. - History Of Current Complaint Chief Complaint: EDDizziness Stated Complaint: LOW BP PER Time Seen by Provider: 04/05/19 10:18 Hx Obtained From: Patient, Family/Drum Barker Operator Onset/Duration: Still Present Timing: Hours Severity Initially: Mild Severity Currently: Mild Character: Lightheaded Aggravating Factor(s): Nothing Alleviating Factor(s): Nothing Associated Signs And Symptoms: Positive: Other: - low blood pressure, SOB when BP was low. Negative: Chest Pain - Allergies/Home Medications Allergies/Adverse Reactions: Allergies Allergy/AdvReac Type Severity Reaction Status Date / Time No Known Allergies Allergy Verified 04/05/19 10:17 PMH/Surg Hx/FS Hx/Imm Hx Endocrine/Hematology History: Denies: Hx Anticoagulant Therapy, Hx Blood Disorders, Hx Blood Transfusions, Hx Bone Marrow Disease, Hx Diabetes, Hx Systemic Lupus Erythematosus, Hx Sickle Cell Disease, Hx Thyroid Disease, Hx Anemia, Hx Unexplained Bleeding, Other Endocrine/Hematological Disorders Cardiovascular History: Reports: Hx Angina, Hx Coronary Artery Disease, Hx Hypercholesterolemia, Hx Hypertension - on meds well controlled, Other Cardiovascular Problems/Disorders - CHOLESTEROL CONTROL WITH MEDS, new diagnosis of a-fib Denies: Hx Aneurysm, Hx Angioplasty, Hx Auto Implanted Cardiovert Defib, Hx Cardiac Arrest, Hx Cardiomegaly, Hx Congenital Heart Disease, Hx Congestive Heart Failure, Hx Deep Vein Thrombosis, Hx Hypotension, Hx Myocardial Infarction , Hx Pacemaker/ICD, Hx Peripheral Vascular Disease, Hx Rheumatic Fever, Hx Syncope, Hx Valvular Heart Disease Respiratory History: Reports: Hx Asthma - PRN INHALER History: Reports: Other Problems/Disorders - CURRENTLY HEMATURIA, bladder diverticlae Denies: Hx Acute Renal Failure, Hx Benign Prostatic Hyperplasia, Hx Chronic Renal Failure, Hx Dialysis, Hx Kidney Infection, Hx Kidney Stones, Hx Renal Disease Musculoskeletal History: Reports: Hx Back Problems Denies: Hx Arthritis, Hx Bursitis, Hx Congenital Bone Abnormalities, Hx Fibromyalgia, Hx Gout, Hx Orthopedic Injury, Hx Osteoporosis, Hx Scoliosis, Hx Tendonitis, Other Musculoskeletal History Sensory History: Reports: Hx Cataracts - removed, Hx Contacts or Glasses - Reading glasses, Hx Hearing Aid, Hx Hearing Problem Denies: Hx Eye Injury, Hx Eye Prosthesis, Hx Glaucoma, Hx Macular Degeneration, Hx Vision Problem, Hx Deafness, Other Sensory Impairments Opthamlomology History: Reports: Hx Cataracts - removed, Hx Contacts or Glasses - Reading glasses Denies: Hx Eye Injury, Hx Eye Prosthesis, Hx Glaucoma, Hx Macular Degeneration, Hx Vision Problem, Other Sensory Impairments Psychiatric History: Denies: Hx Panic Disorder - Cancer History Hx Chemotherapy: No - Surgical History Surgery Procedure, Year, and Place: 1984 KNEE LEFT AR[place]ROS[place] [facility] [place] LEFT ROTATOR CUFF REPAIR, [facility] [place] RIGHT ROTATOR CUFF [place]PAIR, [facility] [place] 2012 ANGIOPLASTY WITH 1 CARDIAC STENT PLACEMENT, [facility] [place] CATARACTS 2013 Hx Anesthesia Reactions: No - Immunization History Date of Tetanus Vaccine: up to date Date of Influenza Vaccine: 2016 Infectious Disease History: No Infectious Disease History: Denies: Hx Clostridium Difficile, Hx Hepatitis, Hx Human Immunodeficiency Virus (HIV), Hx Shingles, Hx Tuberculosis, Traveled Outside the in Last 30 Days - Family History Known Family History: Positive: Unknown, Non-Contributory Negative: Renal Disease - Social History Alcohol Use: Weekly Alcohol Amount: 1-2 Substance Use Type: Reports: None Smoking Status (MU): Never Smoked Tobacco Have You Smoked in the Last Year: No Review of Systems Negative: Fever Positive: Other - positive: low BP. Negative: Chest Pain Positive: Shortness Of Breath Neurological: Other - positive: lightheaded All Other Systems Reviewed And Are Negative: Yes Physical Exam - Summary Physical Exam Summary: Constitutional: Well-developed, Well-nourished, Alert. (-) Distressed Skin: Warm, Dry HENT: Normocephalic; Atraumatic Eyes: Conjunctiva normal Neck: Musculoskeletal ROM normal neck. (-) JVD, (-) Stridor, (-) Nuchal rigidity Cardio: Irregularly irregular rate and rhythm, Heart sounds normal; Intact distal pulses; Radial pulses are 2+ and symmetric. (-) Murmur Pulmonary/Chest wall: Effort normal. (-) Respiratory distress, (-) Wheezes, (-) Rales Abd: Soft, (-) tenderness, (-) Distension, (-) Guarding, (-) Rebound Musculoskeletal: (-) Edema Lymph: (-) Cervical adenopathy Neuro: Alert, Oriented x3 Psych: Mood and affect Normal Triage Information Reviewed: Yes Vital Signs On Initial Exam: Initial Vitals Temp Pulse Resp BP Pulse Ox 97.3 F 73 16 103/59 96 04/05/19 10:14 04/05/19 10:14 04/05/19 10:14 04/05/19 10:14 04/05/19 10:14 Vital Signs Reviewed: Yes Diagnostics - Vital Signs Vital Signs Temp Pulse Resp BP Pulse Ox 04/05/19 10:14 97.3 F 73 16 103/59 96 - Laboratory Result Diagrams: 04/05/19 10:36 04/05/19 10:36 Lab Statement: Any lab studies that have been ordered have been reviewed, and results considered in the medical decision making process. - Radiology CXR Radiology Interpretation Completed By: Radiologist Summary of Radiographic Findings: NO ACTIVE CARDIOPULMONARY DISEASE. ED physician has reviewed this imaging report. - EKG 10:21 Cardiac Rate: Other Rate - Atrial fibrillation at 82 bpm EKG Rhythm: Atrial Fibrillation Summary of EKG Findings: An EKG at 10:21 showed Atrial firbillation at 82 bpm, no ischemic changes, no change from prior EKG compared to 04/04/19 Re-Evaluation - Re-Evaluation First Eval Re-Evaluation Time: 12:21 Change: Unchanged Comment: updated Pt on plan. Second Eval Re-Evaluation Time: 12:35 Change: Improved Comment: Pt ambulated. BP systolic 115. Feels well and would like to go home. Instructed to stopped taking his nighttime dose of carvedilol Dizzy Course/Dx - Course Course Of Treatment: 84 y/o male w history of atrial fibrillation on diltiazem and coregg presents with hypotension. - Systolic BP 100s. Patient was seen here yesterday for hypotension with a rapid A. fib. - Patient denies chest pain or lightheadedness at this time. We'll check basic labs, EKG, give fluids and reassess. Suspect this could be to medication use as he takes his diltiazem in the morning. - Diagnoses Provider Diagnoses: Hypotension, Atrial fibrillation - Provider Notifications Discussed Care Of Patient With: Jeff Grande Time Discussed With Above Provider: 12:17 Instructed by Provider To: Other - recommended that the patient stop the evening Coreg. Discharge - Sign-Out/Discharge Documenting (check all that apply): Patient Departure - DC Patient Received Moderate/Deep Sedation with Procedure: No - Discharge Plan Condition: Stable Disposition: HOME Patient Education Materials: A-fib (Atrial Fibrillation) (DC), Hypotension (ED) Referrals: Lien Live MD [Primary Care Provider] - Additional Instructions: You were seen in the emergency department for your blood pressure. We spoke with the abrasive water jet cutter operator who recommended to stop your evening dose of Coreg ( carvedilol). Your labs did not show any abnormalities that would cause low blood pressure. Please follow up with your abrasive water jet cutter operator Please follow up with your primary care doctor in next 2-3 days and return to emergency department for continued low blood pressure, chest pain, shortness of breath, passing out ,worsening or concerning symptoms. - Billing Disposition and Condition Condition: STABLE Disposition: Home - Attestation Statements Document Initiated by Scribe: Yes Documenting Scribe: Nando Hilton Provider For Whom Eulogio is Documenting (Include Credential): Ancelmo Lozano MD Scribe Attestation: INando, scribed for Ancelmo Lozano MD on 04/05/19 at 1316. Scribe Documentation Reviewed: Yes Provider Attestation: The documentation as recorded by the Nando moreira accurately reflects the service I personally performed and the decisions made by me, Ancelmo Lozano MD Status of Scribe Document: Viewed
[2019-04-05 10:42] LABS: ABS Eosinophils 0.2 10^3/ul (0-0.6); ABS Monocytes 0.5 10^3/ul (0-0.8); Eosinophil % 3.1 %; Hematocrit 42 % (42-52); Hemoglobin 14.8 g/dL (14.0-18.0); Lymphocyte % 14.1 %; Mean Corpuscular HGB Conc 35 g/dL (31-36); Mean Corpuscular Hemoglobin 35 pg (27-31); Mean Corpuscular Volume 98 fL (80-94); Mean Platelet Volume 7.2 fL (7.4-10.4); Platelet Count 167 10^3/uL (150-450); Red Blood Count 4.29 10^6 /uL (4.18-5.48); Red Cell Distribution Width 14 % (10-15); White Blood Count 6.7 10^3/uL (3.5-10.8)
[2019-04-05 11:03] LABS: Albumin 3.8 g/dL (3.2-5.2); Albumin/Globulin Ratio 1.5 (1-3); BUN/Creatinine Ratio 19.8 (8-20); Calcium 8.9 mg/dL (8.6-10.3); EGFR African American 90.5 (>60); EGFR Non-African American 74.8 (>60); Globulin 2.5 g/dL (2-4); Potassium 4.1 mmol/L (3.5-5.0); Total Bilirubin 0.6 mg/dL (0.2-1.0); Total Protein 6.3 g/dL (6.4-8.9)
[2019-04-05] MEDS ORDERED: NS 0.9% 500 ML* 500 ML IV ONE (11:37)
[2019-04-05 12:43] VITALS: BP 115/75
== END 2019-04-05 12:50 | disposition home or self-care (01) ==
LOC: ED 10:13
DX: I95.9 Hypotension, unspecified (principal); I48.91 Unspecified atrial fibrillation; I25.119 Atherosclerotic heart disease of native coronary artery with unspecified angina pectoris; E78.00 Pure hypercholesterolemia, unspecified; I10 Essential (primary) hypertension; Z79.899 Other long term (current) drug therapy
CPT/HCPCS: 36415; 71045; 80053; 83735; 84484; 85025; 93005; 99283

== ENCOUNTER 2020-08-01 09:55 | Inpatient (IN) ==
[2020-08-01] MEDS ORDERED: NS 0.9% 1000 ml BAG 1,000 ML IV ONE (10:02)
[2020-08-01] MEDS ORDERED: Diltiazem (ADVAN VIAL) 100 MG/100 ML ADDV.BAG IV ONE (10:10)
[2020-08-01 10:59] LABS: ALT 11 U/L (7-52); Albumin 3.4 g/dL (3.2-5.2); Albumin/Globulin Ratio 1.4 (1-3); Alkaline Phosphatase 58 U/L (34-104); BUN/Creatinine Ratio 22.9 (8-20); Blood Urea Nitrogen 25 mg/dL (6-24); CO2 Carbon Dioxide 22 mmol/L (22-32); Calcium 8.3 mg/dL (8.6-10.3); Chloride 103 mmol/L (101-111); EGFR Non-African American 64.4 (>60); Globulin 2.5 g/dL (2-4); Glucose 124 mg/dL (70-100); Lipase < 10 U/L (11.0-82.0); Sodium 133 mmol/L (135-145); Total Protein 5.9 g/dL (6.4-8.9)
[2020-08-01 11:01] LABS: Troponin I 0.01 ng/mL (<0.03)
[2020-08-01 11:05] LABS: Activated Partial Thrombo Time 26.2 seconds (26.0-38.0); INR 2.26 (0.82-1.09)
[2020-08-01 11:26] LABS: TSH Ultra Thyroid Stim Horm 3.99 mcIU/mL (0.34-5.60)
[2020-08-01 11:31] LABS: ABS Lymphocytes 0.5 10^3/ul (1.0-4.8); ABS Monocytes 0.7 10^3/ul (0-0.8); ABS Neutrophils 6.1 10^3/ul (1.5-7.7); Eosinophil % 0.3 %; Hematocrit 41 % (42-52); Hemoglobin 14.1 g/dL (14.0-18.0); Lymphocyte % 6.7 %; Mean Corpuscular HGB Conc 34 g/dL (31-36); Mean Corpuscular Hemoglobin 35 pg (27-31); Mean Corpuscular Volume 102 fL (80-94); Mean Platelet Volume 8.5 fL (7.4-10.4); Platelet Count 149 10^3/uL (150-450); Red Blood Count 4.05 10^6 /uL (4.18-5.48); Red Cell Distribution Width 14 % (10-15); White Blood Count 7.3 10^3/uL (3.5-10.8)
[2020-08-01] MEDS ORDERED: Iohexol 300 (CONTRAST) 10 ML SDV IV ONE (11:53)
[2020-08-01 12:51] LABS: Anion Gap 8 mmol/L (2-11); Magnesium 1.6 mg/dL (1.9-2.7); Potassium 3.7 mmol/L (3.5-5.0)
[2020-08-01] MEDS ORDERED: Magnesium Sulfate 2 gm BAG 2 GM/50 ML BAG IVPB ONE (12:52)
[2020-08-01 12:57] LABS: AST 14 U/L (13-39)
[2020-08-01] MEDS: KCL 20 MEQ/100 ML IVPREMIX 20 MEQ/100 ML BAG IV SCH ×2 (14:29→21:45)
[2020-08-01] MEDS ORDERED: Digoxin IV 0.5 MG/2 ML AMP (0.25 MG/ML) IV SLOW PU ONE ×2 (14:43→22:18)
[2020-08-01] MEDS ORDERED: Albuterol 2.5mg/3 ml (0.083%) NEB.SOLN INH PRN (15:16)
[2020-08-01] MEDS ORDERED: Lactated Ringers 1000 ml BAG 1,000 ML IV SCH ×2 (16:00→19:00)
[2020-08-01] MEDS ORDERED: Bupivacaine 0.25% SDV 30 ML ONE (16:20)
[2020-08-01] MEDS ORDERED: ceFAZolin 2 GM PREMIX 2 GM/50 ML BAG ONE (16:38)
[2020-08-01] MEDS ORDERED: metroNIDAZOLE IV 500 MG/100ML 500 MG/100 ML BAG ONE (16:38)
[2020-08-01] MEDS ORDERED: Lidocaine 2% PF 5 ML VIAL ONE (17:08)
[2020-08-01] MEDS ORDERED: Succinylcholine 200 mg VIAL 20 mg/ml 10 ml VIAL (200 mg) ONE (17:08)
[2020-08-01] MEDS ORDERED: Midazolam 2 mg/2 ml VIAL 1 mg/ml 2 ml VIAL (2 mg) ONE (17:08)
[2020-08-01] MEDS ORDERED: Propofol 10 MG/ML 20 ML BTL ONE (17:08)
[2020-08-01] MEDS ORDERED: Phenylephrine 40 mcg/mL 10mL (400mcg) SYRINGE ONE (17:08)
[2020-08-01] MEDS ORDERED: Phenylephrine IV 10 MG/ML 1 ml VIAL ONE (17:09)
[2020-08-01] MEDS ORDERED: Rocuronium 50 mg VIAL 10 mg/ml 5 ml VIAL (50 mg) ONE (17:24)
[2020-08-01] MEDS ORDERED: Esmolol 10 MG/ML 10 ML (100 mg) ONE (17:34)
[2020-08-01] MEDS ORDERED: Dexamethasone IV 4 MG/ML VIAL 1 ml VIAL ONE (17:41)
[2020-08-01] MEDS ORDERED: Acetaminophen IV 1 GM/100ML 100 ML ONE (17:51)
[2020-08-01] MEDS ORDERED: Naloxone 0.4 mg VIAL 0.4 mg/ml 1 ml VIAL IV PRN (17:54)
[2020-08-01] MEDS ORDERED: DiMENhydriNATE IV 50 mg/ml 1 ml VIAL IV PUSH PRN (17:54)
[2020-08-01] MEDS ORDERED: HYDROmorphone 1 MG/1 ML SYRINGE IV PRN (17:54)
[2020-08-01] MEDS ORDERED: HYDROmorphone 1 MG/1 ML SYRINGE ONE (17:55)
[2020-08-01] MEDS ORDERED: Ondansetron 4 mg VIAL 2 MG/ML 2 ml VIAL IV PRN (18:27)
[2020-08-01] MEDS ORDERED: HYDROmorphone 1 MG/1 ML SYRINGE IV SLOW PU PRN (18:27)
[2020-08-01] MEDS ORDERED: Fluticasone DISKUS 250 MCG(NF) 1 PUFF DISKUS INH SCH (21:00)
[2020-08-01] MEDS: Enoxaparin 100 MG/ML SYR SUBCUT SCH (21:28)
[2020-08-01] MEDS: Mometasone/Formoter 200/5 MDI INH SCH ×2 (21:28→21:41)
[2020-08-01] MEDS ORDERED: KCL 20 MEQ/100 ML IVPREMIX 20 MEQ/100 ML BAG ONE (21:43)
[2020-08-01] MEDS ORDERED: Digoxin IV 0.5 MG/2 ML AMP (0.25 MG/ML) ONE (22:30)
[2020-08-02 04:57] LABS: ABS Lymphocytes 0.3 10^3/ul (1.0-4.8); ABS Monocytes 0.2 10^3/ul (0-0.8); ABS Neutrophils 4.8 10^3/ul (1.5-7.7); Hematocrit 39 % (42-52); Hemoglobin 13.6 g/dL (14.0-18.0); Lymphocyte % 5.6 %; Mean Corpuscular HGB Conc 35 g/dL (31-36); Mean Corpuscular Hemoglobin 35 pg (27-31); Mean Corpuscular Volume 100 fL (80-94); Mean Platelet Volume 8.3 fL (7.4-10.4); Platelet Count 144 10^3/uL (150-450); Red Blood Count 3.89 10^6 /uL (4.18-5.48); Red Cell Distribution Width 15 % (10-15); White Blood Count 5.3 10^3/uL (3.5-10.8)
[2020-08-02 05:16] LABS: BUN/Creatinine Ratio 26.7 (8-20); Calcium 8.1 mg/dL (8.6-10.3); EGFR African American 120.1 (>60); EGFR Non-African American 99.2 (>60); Potassium 4.5 mmol/L (3.5-5.0)
[2020-08-02] MEDS ORDERED: metroNIDAZOLE IV 500 MG/100ML 100 ML IVPB ONE (06:00)
[2020-08-02] MEDS ORDERED: ceFAZolin 2 GM PREMIX 2 GM/50 ML BAG IVPB ONE (06:00)
[2020-08-02 06:25] LABS: Urine Appearance Clear; Urine Bilirubin Negative (Negative); Urine Blood 1+ (Negative); Urine Color Yellow; Urine Glucose Negative (Negative); Urine Ketones Trace (Negative); Urine Nitrite Negative (Negative); Urine Protein Negative (Negative); Urine Specific Gravity 1.032 (1.010-1.030); Urine Urobilinogen Negative (Negative)
[2020-08-02 06:28] LABS: Urine Bacteria Absent (Absent); Urine Red Blood Cell 1+(3-5/hpf) (Absent); Urine Squamous Epithelial Cell Present (Absent); Urine White Blood Cell Trace(0-5/hpf) (Absent)
[2020-08-02] MEDS ORDERED: Budesonide/Formote 160/4.5(NF) MDI INH SCH (09:00)
[2020-08-02] MEDS: Fluticasone NASAL SPRAY 50MCG 16 gm SPRAY BTL BOTH NARES SCH (09:43)
[2020-08-02] MEDS: Enoxaparin 100 MG/ML SYR SUBCUT SCH (09:43)
[2020-08-02] MEDS ORDERED: Digoxin IV 0.5 MG/2 ML AMP (0.25 MG/ML) IV SLOW PU ONE (11:00)
[2020-08-02] MEDS ORDERED: Albuterol HFA INHALER 8 gm MDI INH PRN (12:37)
[2020-08-02] MEDS ORDERED: Magnesium Sulfate 2 gm BAG 2 GM/50 ML BAG IVPB ONE (12:39)
[2020-08-02] MEDS ORDERED: Metoprolol Tartrate 5 mg VIAL 5 ml VIAL (1 mg/ml) IV ONE (13:19)
[2020-08-03 04:59] LABS: Albumin 3.1 g/dL (3.2-5.2); Albumin/Globulin Ratio 1.5 (1-3); BUN/Creatinine Ratio 22.5 (8-20); Calcium 8.2 mg/dL (8.6-10.3); EGFR African American 111.4 (>60); EGFR Non-African American 92.1 (>60); Globulin 2.1 g/dL (2-4); Magnesium 1.9 mg/dL (1.9-2.7); Phosphorus 2.8 mg/dL (2.5-5.0); Total Bilirubin 0.8 mg/dL (0.2-1.0); Total Protein 5.2 g/dL (6.4-8.9)
[2020-08-03 05:01] LABS: ABS Lymphocytes 0.9 10^3/ul (1.0-4.8); ABS Monocytes 0.4 10^3/ul (0-0.8); Eosinophil % 0.3 %; Hematocrit 44 % (42-52); Hemoglobin 14.7 g/dL (14.0-18.0); Mean Corpuscular HGB Conc 34 g/dL (31-36); Mean Corpuscular Hemoglobin 34 pg (27-31); Mean Corpuscular Volume 102 fL (80-94); Mean Platelet Volume 8.3 fL (7.4-10.4); Platelet Count 148 10^3/uL (150-450); Red Blood Count 4.26 10^6 /uL (4.18-5.48); Red Cell Distribution Width 14 % (10-15); White Blood Count 5.3 10^3/uL (3.5-10.8)
[2020-08-03 05:25] LABS: Digoxin 1.2 ng/ml (0.8-2.0)
[2020-08-03] MEDS ORDERED: Haloperidol 5 mg/ml SDV IV/IM 5 MG/ML AMP IV SLOW PU ONE (05:59)
[2020-08-03] MEDS ORDERED: Magnesium Sulfate 2 gm BAG 2 GM/50 ML BAG IVPB ONE (07:09)
[2020-08-03] MEDS: Fluticasone NASAL SPRAY 50MCG 16 gm SPRAY BTL BOTH NARES SCH (09:31)
[2020-08-03] MEDS ORDERED: Metoprolol Tartrate 5 mg VIAL 5 ml VIAL (1 mg/ml) IV PRN (16:49)
[2020-08-04] MEDS: Fluticasone NASAL SPRAY 50MCG 16 gm SPRAY BTL BOTH NARES SCH (08:00)
[2020-08-04] MEDS ORDERED: NS 0.9% 500 ml BAG 500 ML IV ONE (14:16)
[2020-08-04] MEDS ORDERED: Digoxin IV 0.5 MG/2 ML AMP (0.25 MG/ML) IV SLOW PU ONE ×2 (14:17→20:46)
[2020-08-04] MEDS ORDERED: Digoxin IV 0.5 MG/2 ML AMP (0.25 MG/ML) ONE (14:51)
[2020-08-05 04:41] LABS: ABS Eosinophils 0.2 10^3/ul (0-0.6); ABS Lymphocytes 1.3 10^3/ul (1.0-4.8); ABS Monocytes 0.4 10^3/ul (0-0.8); ABS Neutrophils 4.1 10^3/ul (1.5-7.7); Eosinophil % 3.6 %; Hematocrit 42 % (42-52); Hemoglobin 14.5 g/dL (14.0-18.0); Lymphocyte % 20.9 %; Mean Corpuscular HGB Conc 35 g/dL (31-36); Mean Corpuscular Hemoglobin 35 pg (27-31); Mean Corpuscular Volume 101 fL (80-94); Mean Platelet Volume 7.9 fL (7.4-10.4); Nucleated Red Blood Cells % 0.1; Platelet Count 163 10^3/uL (150-450); Red Blood Count 4.16 10^6 /uL (4.18-5.48); Red Cell Distribution Width 15 % (10-15)
[2020-08-05 04:57] LABS: BUN/Creatinine Ratio 21.4 (8-20); EGFR African American 105.3 (>60); EGFR Non-African American 87.1 (>60); Potassium 3.8 mmol/L (3.5-5.0)
[2020-08-05] MEDS: Fluticasone NASAL SPRAY 50MCG 16 gm SPRAY BTL BOTH NARES SCH (09:47)
[2020-08-06] MEDS: Fluticasone NASAL SPRAY 50MCG 16 gm SPRAY BTL BOTH NARES SCH (08:55)
[2020-08-06 17:31] VITALS: BP 94/63
== END 2020-08-06 17:40 | disposition home health service (06) | DRG 981 ==
LOC: ED 09:55 → OR 18:57 → ICU 19:51 → MEDTELE 08-05 18:03
PROVIDERS: ADMIT Nurse Practitioner Family; ATTEND Surgery

== ENCOUNTER 2024-05-22 05:48 | Observation (INO) ==
[~2024-05-22 05:48] MED LIST changes: -Digoxin IV* 0.5 MG/2 ML AMP (0.25 MG/ML) IV SLOW PU ONE; +Metoclopramide 5 MG/ML VIAL (10 mg) IV PRN; +NS 0.45% 1000 ml BAG 1,000 ML IV SCH; -NS 0.9% 1000 ML** 1,000 ML IV ONE; +Naloxone 0.4 mg VIAL 0.4 mg/ml 1 ml VIAL IV PRN; +Ondansetron 4 mg VIAL 2 MG/ML 2 ml VIAL IV PRN; +fentaNYL 100 mcg/2 ml 50 MCG/ML VIAL IV PRN
[2024-05-22] MEDS ORDERED: ceFAZolin 2 GM PREMIX 2 GM/50 ML BAG ONE (06:16)
[2024-05-22] MEDS ORDERED: Lidocaine 2% PF 5 ML VIAL ONE (06:42)
[2024-05-22] MEDS ORDERED: Ondansetron 4 mg VIAL 2 MG/ML 2 ml VIAL ONE (06:42)
[2024-05-22] MEDS ORDERED: Propofol 10 MG/ML 20 ML BTL ONE (06:42)
[2024-05-22] MEDS ORDERED: fentaNYL 100 mcg/2 ml 50 MCG/ML VIAL ONE ×2 (06:42→09:11)
[2024-05-22] MEDS ORDERED: Rocuronium 50 mg VIAL 10 mg/ml 5 ml VIAL (50 mg) ONE ×2 (06:42→08:53)
[2024-05-22] MEDS ORDERED: Dexamethasone IV 4 MG/ML VIAL 1 ml VIAL ONE (06:42)
[2024-05-22] MEDS: Buffered Lidocaine 1% SYRIN 1 ml INTRADERM ONE (06:48)
[2024-05-22] MEDS: Lactated Ringers 1000 ml BAG 1,000 ML IV SCH ×3 (06:49→23:48)
[2024-05-22] MEDS: Scopolamine 1 mg/72hr PATCH TRANSDERM ONE (06:49)
[2024-05-22] MEDS ORDERED: Bupivacaine 0.25% SDV 30 ML ONE (07:04)
[2024-05-22] MEDS ORDERED: Bupivacaine 0.25% EPI 200,000 30 ML SDV ONE (07:28)
[2024-05-22] MEDS ORDERED: Ondansetron 4 mg VIAL 2 MG/ML 2 ml VIAL IV PRN (13:37)
[2024-05-22] MEDS: Acetaminophen IV 1 GM/100ML 1,000 MG/100 ML BAG IV ONE (14:38)
[2024-05-22 15:10] LABS: Rapid COVID-19 Molecular Undetected (Undetected)
[2024-05-22] MEDS: Mometasone/Formoter 200/5 MDI INH SCH (20:19)
[2024-05-22] MEDS ORDERED: Lactated Ringers 1000 ml BAG 1,000 ML IV SCH (22:00)
[2024-05-23 09:54] VITALS: BP 101/66
== END 2024-05-23 10:35 | disposition home or self-care (01) ==
LOC: OR 05:48 → INTOOBSV 13:32 → SSU 13:32
PROVIDERS: ADMIT Surgery; ATTEND Surgery